=== PATIENT | male | born 1995 | race Caucasian/White ===

== ENCOUNTER 2018-05-29 02:29 | Emergency (ER) | payer SELFPAY ==
[2018-05-29 03:29] LABS: #Basophils 0.1 thou/uL (0.0-0.2); #Eosinphils 0.3 thou/uL (0.0-0.7); #Lymphocytes 1.5 thou/uL (1.20-3.40); #Neutrophils 11.3 thou/uL (1.40-6.50); %Basophils 0.6 % (0.0-1.0); %Eosinophils 1.8 % (0.0-10.0); %Lymphocytes 10.6 % (21.0-51.0); Hemoglobin 14.4 g/dL (14.0-18.0); Mean Corpuscular HGB CONC 34.1 g/dL (32.0-36.0); Mean Corpuscular Hemoglobin 32.1 pg (27.0-31.0); Mean Corpuscular Volume 94.1 fL (78.0-98.0); Mean Platelet Volume 7.4 fL (7.4-10.4); Platelet Count 266 thou/uL (130-400); RBC Distribution Width 11.9 % (11.5-14.5); Red Blood Cell (RBC) Count 4.49 mill/uL (4.70-6.10); White Blood Cell (WBC) Count 14.2 thou/uL (4.8-10.8)
[2018-05-29 03:46] LABS: ALT (SGPT) 16 U/L (8-55); AST (SGOT) 18 U/L (5-34); Albumin 4.4 g/dL (3.5-5.0); Alkaline Phosphatase 75 U/L (40-150); Anion Gap 14 mmol/L (10-20); BUN (Urea Nitrogen) 15 mg/dL (8.9-20.6); Bilirubin, Total 0.3 mg/dL (0.2-1.2); Calc. Creatinine Clearance 0 mL/min (70-130); Calcium 9.8 mg/dL (7.8-10.44); Carbon Dioxide 24 mmol/L (22-29); Chloride 107 mmol/L (98-107); Estimated GFR-MDRD Greater than 90; Glucose 110 mg/dL (70-105); Lipase 34 U/L (8-78); Potassium 3.6 mmol/L (3.5-5.1); Protein, Total 7.4 g/dL (6.0-8.3); Sodium 141 mmol/L (136-145)
[2018-05-29 04:47] LABS: Bilirubin Negative (Negative); Blood, Urine Large (Negative); Clarity CLEAR (Clear); Glucose, Urine (Dipstick) Negative (Negative); Leukocyte Negative (Negative); Nitrite Negative (Negative); Protein, Urine (Dipstick) Trace mg/dL (Neg-Trace); Specific Gravity, Urine 1.021 (1.002-1.036); Urobilinogen 0.2 mg/dL (0.2-1.0)
[2018-05-29 04:50] LABS: Bacteria/HPF None Seen HPF (None Seen); Pathc Cast-AUWi Flag 0.29 (0-2.49); RBC/HPF GREATER THAN 50-TNTC HPF (0-3); Squamous Epithelial 0-3 HPF (0-3)
[2018-05-29 05:00] LABS: Crystals/HPF 1+ CA OXALATE HPF (Negative); Hyaline Casts/LPF NONE SEEN LPF (0-3 Hyaline); Renal Epithelial None Seen HPF (0-3); Transitional Epithelial NONE SEEN HPF (0-3)
[2018-05-29] MEDS ORDERED: Ketorolac Tromethamine 30 MG/ML VIAL ONE (05:28)
[2018-05-29] MEDS ORDERED: Morphine 4 MG/ML VIAL ONE (05:28)
--- NOTE | 2018-05-29 08:57 | CT ---
PRELIMINARY REPORT/[facility]/EMERGENTY AFTER-HOURS PROCEDURE CT Abdomen and Pelvis With Contrast EXAM DATE/TIME: 05/29/2018 5:35 AM CLINICAL HISTORY: 23 years old, male; Pain; Abdominal pain; Flank; Right; Patient HX: [id number] presents to ed for abdominal pain. PT reports right sided abdominal pain with radiation into his groin that started earlier tonigh t. PT reports vomiting and dysuria as well. TECHNIQUE: Axial computed tomography images of the abdomen and pelvis with intravenous contrast. Coronal reformatted images were created and reviewed. COMPARISON: No relevant prior studies available. FINDINGS: Lower thorax: No acute findings. ABDOMEN: Liver: There are no focal liver lesions identified. Gallbladder and bile ducts: Normal. No calcified stones. No ductal dilation. Pancreas: The pancreas appears normal. No ductal dilatation. Spleen: The spleen is normal. Adrenals: The adrenal glands are normal. Kidneys and ureters: The left kidney is normal. There is a 2 x 3 x 4 mm calculus within the distal RI GHT ureter with associated mild RIGHT hydroureteronephrosis. Stomach and bowel: The stomach is normal. The duodenum is unremarkable. There is no evidence of intes tinal perforation or obstruction. Appendix: Normal appendix is probably identified. No associated signs to suggest acute appendicitis. PELVIS: Bladder: Unremarkable as visualized. Reproductive: Unremarkable as visualized. ABDOMEN and PELVIS: Intraperitoneal space: Normal. No free air. No significant fluid collection. Bones/joints: No acute fracture. No dislocation. Soft tissues: Unremarkable. Vasculature: Normal. No abdominal aortic aneurysm. Lymph nodes: Normal. No enlarged lymph nodes. IMPRESSION: There is a 2 x 3 x 4 mm calculus within the distal RIGHT ureter with associated mild RIGHT hydrourete ronephrosis. Thank you for allowing us to participate in the care of your patient. Dictated and Authenticated by: Gabriel Anaya MD 05/29/2018 6:03 AM Central Time ([place] & [place]) FINAL REPORT EMERGENCY AFTER HOURS ABDOMEN AND PELVIC CT SCAN WITH IV CONTRAST: Date: 05/29/18 Time: 0537 hours FINDINGS/IMPRESSION: 0.2 x 0.3 x 0.4 cm distal right ureteral calculus with some mild right hydroureteronephrosis. No CT e vidence for acute appendicitis. No evidence for other significant acute process. POS: [facility]
== END 2018-05-29 06:39 | disposition home or self-care (01) ==
LOC: ERS 02:29
DX: N13.2 Hydronephrosis with renal and ureteral calculous obstruction (principal); G43.909 Migraine, unspecified, not intractable, without status migrainosus; F31.9 Bipolar disorder, unspecified; F20.9 Schizophrenia, unspecified; F17.210 Nicotine dependence, cigarettes, uncomplicated
CPT/HCPCS: 36415; 74177; 80053; 81003; 81015; 83690; 85025; 87086; 96361; 96374; 96375; J1885; J2270

== ENCOUNTER 2019-10-30 23:09 | Emergency (ER) | payer SELFPAY ==
[~2019-10-30 23:09] MED LIST: Iopamidol-370 76% 500 ML 1 ML ONE
[2019-10-30 23:30] LABS: #Basophils 0.1 thou/uL (0.0-0.2); #Eosinphils 0.6 thou/uL (0.0-0.7); #Lymphocytes 3.4 thou/uL (1.20-3.40); #Monocytes 0.5 thou/uL (0.11-0.59); %Basophils 1.4 % (0.0-1.0); %Eosinophils 5.5 % (0.0-10.0); %Lymphocytes 31.5 % (21.0-51.0); %Monocytes 4.8 % (0.0-10.0); %Neutrophils 56.8 % (42.0-75.0); Hemoglobin 15.3 g/dL (14.0-18.0); Mean Corpuscular HGB CONC 33.2 g/dL (32.0-36.0); Mean Corpuscular Hemoglobin 32.2 pg (27.0-31.0); Platelet Count 376 thou/uL (130-400); RBC Distribution Width 11.8 % (11.5-14.5); Red Blood Cell (RBC) Count 4.74 mill/uL (4.70-6.10); White Blood Cell (WBC) Count 10.6 thou/uL (4.8-10.8)
--- NOTE | 2019-10-30 23:37 | RAD ---
Portable frontal chest radiograph: 10/30/2019 COMPARISON: None HISTORY: Trauma FINDINGS: Lungs are clear. Heart and mediastinal contours appear within normal limits. Supine imaging is provided, limiting assessment for pneumothorax and pleural fluid. IMPRESSION: No acute findings.
[2019-10-30 23:52] LABS: ALT (SGPT) 12 U/L (8-55); AST (SGOT) 19 U/L (5-34); Albumin 4.4 g/dL (3.5-5.0); Alkaline Phosphatase 107 U/L (40-110); Anion Gap 15 mmol/L (10-20); BUN (Urea Nitrogen) 12 mg/dL (8.9-20.6); Bilirubin, Total 0.3 mg/dL (0.2-1.2); Calc. Creatinine Clearance 0 mL/min (70-130); Calcium 9.3 mg/dL (7.8-10.44); Carbon Dioxide 20 mmol/L (22-29); Chloride 108 mmol/L (98-107); Estimated GFR-MDRD 72; Glucose 80 mg/dL (70-105); Protein, Total 7.4 g/dL (6.0-8.3); Sodium 139 mmol/L (136-145)
[2019-10-30 23:54] LABS: Acetaminophen Less than 6.0 mcg/mL (10.0-30.0); Alcohol 197 mg/dL (Less than 10); Salicylate Less than 8.0 mg/dL (15.0-30.0)
[2019-10-31 00:34] LABS: Bilirubin Negative (Negative); Blood, Urine Negative (Negative); Clarity Clear (Clear); Glucose, Urine (Dipstick) Normal (Negative); Leukocyte Negative Leu/uL (Negative); Nitrite Negative (Negative); Protein, Urine (Dipstick) Negative (Neg-Trace); Urobilinogen Normal mg/dL (Less than 2)
[2019-10-31 01:04] LABS: Amphetamine Not Detected (NotDetected); Barbiturates Screen Not Detected (NotDetected); Benzodiazepine Screen Detected (NotDetected); Cocaine Metabolite Screen Not Detected (NotDetected); Medtox Control Line Valid? VALID (VALID); Medtox Reader # READER 1; Methadone Not Detected (NotDetected); Methamphetamine Not Detected (NotDetected); Opiate Screen Not Detected (NotDetected); Oxycodone Screen Not Detected (NotDetected); Phencyclidine (PCP) Not Detected (NotDetected); THC/Cannabinoid Screen Not Detected (NotDetected); Tricyclic Screen Not Detected (NotDetected)
--- NOTE | 2019-10-31 08:59 | CT ---
CT HEAD: DATE: 10/30/2019. COMPARISON: None. HISTORY: Injury, trauma, pain. TECHNIQUE: Axial CT imaging at 5 mm intervals vertex through the skull base without contrast. FINDINGS: There is mucosal thickening involving the frontal sinuses and anterior ethmoid air cells bilaterally. There is no displaced calvarial fracture. No intracranial hemorrhage, midline shift, mass effect, or ventricular enlargement. IMPRESSION: No acute findings. No intracranial hemorrhage or a displaced calvarial fracture. Results called to Dr. Munoz at approximately 11:40 p.m. 10/30/2019. CODE CR
--- NOTE | 2019-10-31 09:09 | CT ---
CERVICAL SPINE CT WITHOUT CONTRAST: DATE: 10/30/2019. COMPARISON: None. HISTORY: Injury, trauma, pain. TECHNIQUE: Axial CT imaging at 2.5 mm intervals from the skull base through the lung apices with coronal and sag ittal reformatted imaging. FINDINGS: The imaged lung apices are unremarkable. The craniocervical junction, the atlantoaxial interspace, the cervicothoracic junction, the occipital condyles, the dens, and the C1-2 articulation appear grossly unremarkable. The C1 ring is intact. No acute fracture or evidence of dislocation. No anterolisthesis or retrolis thesis. No prevertebral soft tissue swelling. IMPRESSION: No acute fracture or dislocation is seen involving the cervical spine. Results called to Dr. Munoz at 11:40 p.m. 10/30/2019. CODE CR
--- NOTE | 2019-10-31 09:12 | CT ---
CT ABDOMEN AND PELVIS AND LUMBAR SPINE: DATE: 10/30/2019. COMPARISON: None. HISTORY: Injury, trauma, pain. TECHNIQUE: Axial CT imaging at 5 mm intervals from lung bases through the pubic symphysis with intravenous contr ast. Coronal and sagittal reformatted imaging obtained. FINDINGS: The visualized lung bases are unremarkable. No free intraperitoneal air or fluid is seen. Liver, gallbladder, spleen, pancreas, adrenal glands, and kidneys grossly unremarkable. The urinary bladder is markedly distended. Limited assessment of the bowel demonstrates no evidence for inflamma tory change or obstruction. The vascular structures of the abdomen/pelvis appear patent. No abdominal or pelvic lymphadenopathy is seen. Osseous structures demonstrate no acute findings. There is no acute fracture or dislocation involvin g the lumbar spine. IMPRESSION: Distended urinary bladder. No acute posttraumatic abnormality noted within the abdomen/pelvis. Results called to Dr. Munoz at approximately 11:40 p.m. 10/30/2019. CODE CR
== END 2019-10-31 07:30 | disposition home or self-care (01) ==
LOC: ERS 23:09
DX: F10.129 Alcohol abuse with intoxication, unspecified (principal); F13.10 Sedative, hypnotic or anxiolytic abuse, uncomplicated; F31.9 Bipolar disorder, unspecified; F20.9 Schizophrenia, unspecified; F17.210 Nicotine dependence, cigarettes, uncomplicated; Y90.6 Blood alcohol level of 120-199 mg/100 ml; V49.9XXA Car occupant (driver) (passenger) injured in unspecified traffic accident, initial encounter
CPT/HCPCS: 70450; 71045; 72125; 74177; 80053; 80306; 80307; 81003; 82550; 84443; 85025; G0390; L0120; Q9967